=== PATIENT | female | born 1985 | race Caucasian/White ===

== ENCOUNTER 2021-01-23 00:59 | Inpatient (IN) | payer OTHER ==
[2021-01-23] VITALS (7 sets, daily range): BP systolic 108–157; BP diastolic 69–88
[~2021-01-23] VITALS: Ht 170.2 cm; Wt 104.3 kg
[~2021-01-23 00:59] MED LIST: BACTRIM DS TAB1 EAC1 PO
[2021-01-23 02:01] LABS: BASOPHILS 2.5 % (0-2); EOSINOPHILS 2.7 % (0-7); HEMATOCRIT 40.5 % (36.0-48.0); IMMATURE GRANULOCYTES 0.3 % (0-5); LYMPHOCYTE ABS# 6.52 10x3/uL (1.18-3.74); LYMPHOCYTES 45.8 % (15-50); MCH 27.4 pg (26.0-34.0); MCHC 32.1 g/dL (31.0-37.0); MCV 85.4 fL (80.0-100.0); MEAN PLATELET VOLUME 11.1 fL (7.4-10.4); MONOCYTES 5.1 % (2-11); NEUTROPHIL ABS# 6.19 10x3/uL (1.56-6.13); NEUTROPHILS 43.6 % (40-80); RBC 4.74 10x6/uL (4.00-5.40); RDW 16.3 % (11.5-14.5); WBC 14.2 10x3/uL (4.8-10.8)
[2021-01-23 02:03] LABS: PLATELET COUNT 238 10x3/uL (130-400)
[2021-01-23 02:07] LABS: HCG URINE NEGATIVE (NEGATIVE)
[2021-01-23 02:08] LABS: CALC OSMOLALITY 272 mosm/kg (275-300); CALCIUM 8.6 mg/dL (8.5-10.1); CHLORIDE - SERUM 102 mmol/L (98-107); CREATININE - SERUM 0.8 mg/dL (0.6-1.3); GLUCOSE 91 mg/dL (74-106); POTASSIUM - SERUM 3.4 mmol/L (3.5-5.1); SODIUM 138 mmol/L (136-145); UREA NITROGEN 5 mg/dL (7-18); eGFR NON AFRICAN AMERICAN 87 mL/min (90-120)
[2021-01-23 02:14] LABS: BILIRUBIN 2+ (NEGATIVE); KETONE NEGATIVE (NEGATIVE); NITRITE NEGATIVE (NEGATIVE); UROBILINOGEN NORMAL mg/dL (< 2)
[2021-01-23 02:16] LABS: BACTERIA FEW HPF (NONE SEEN); SQUAMOUS EPITHELIAL 0-5 HPF (0-4)
[2021-01-23 02:22] LABS: ALBUMIN 3.2 g/dL (3.4-5.0); ALKALINE PHOSPHATASE 233 U/L (30-120); AMYLASE - SERUM 46 U/L (25-115); BILIRUBIN - TOTAL 2.61 mg/dL (0.2-1.3); LIPASE 73 U/L (73-393)
[2021-01-23 02:23] LABS: ALT (SGPT) 1679 U/L (10-68); TROPONIN-I < 0.017 ng/mL (0.000-0.060)
--- NOTE | 2021-01-23 06:43 | NUR ---
CALLED MOTHER SINCERE WRAY PER PATIENT REQUEST [phone]
--- NOTE | 2021-01-23 11:54 | NUR ---
PATIENT HAVING MRI
--- NOTE | 2021-01-23 12:11 | NUR ---
RETURNED FROM MRI
[2021-01-23 13:37] LABS: UDS - AMPHET POSITIVE QUAL (NEGATIVE); UDS - BARB NEGATIVE QUAL (NEGATIVE); UDS - BENZO NEGATIVE QUAL (NEGATIVE); UDS - COCAINE NEGATIVE QUAL (NEGATIVE); UDS - OPIATE NEGATIVE QUAL (NEGATIVE); UDS - PCP NEGATIVE QUAL (NEGATIVE); UDS - THC POSITIVE QUAL (NEGATIVE)
--- NOTE | 2021-01-23 14:22 | NUR ---
SCDS PLACED ON PATIENT
[2021-01-23 15:16] LABS: INR 1.16 (0.85-1.17); PROTIME 13.7 SECONDS (11.6-15.0)
[2021-01-24] VITALS (8 sets, daily range): BP systolic 117–128; BP diastolic 75–88; Ht 170.2 cm; Wt 104.3 kg
[2021-01-24] MEDS ORDERED: LITHIUM CARBON300 MG PO ×2 (04:40)
[2021-01-24] MEDS ORDERED: CELEXA20 MG PO (04:41)
[2021-01-24] MEDS ORDERED: VISTARIL25 MG PO (04:41)
[2021-01-24] MEDS ORDERED: COLACE100 MG PO (04:41)
[2021-01-24] MEDS ORDERED: TOFRANIL25 MG PO (04:42)
[2021-01-24 06:54] LABS: HEMOGLOBIN 11.6 g/dL (12-16); LYMPHOCYTE ABS# 5.56 10x3/uL (1.18-3.74); MCH 27.2 pg (26.0-34.0); MCHC 31.4 g/dL (31.0-37.0); MCV 86.7 fL (80.0-100.0); MEAN PLATELET VOLUME 11.6 fL (7.4-10.4); NEUTROPHIL ABS# 3.81 10x3/uL (1.56-6.13); PLATELET COUNT 207 10x3/uL (130-400); RBC 4.27 10x6/uL (4.00-5.40)
--- NOTE | 2021-01-24 07:00 | NUR ---
REC'D RORT AND RESUMED CARE, AAO, VSS, DENIES PAIN AT THIS TIME, O2 VIA RA, ASSESSMENT COMPLETED PER FLOWSHEET, CALL IGHT IN REACH, SELF REPOSITIONS, NO NEEDS AT THIS TIME
[2021-01-24 07:07] LABS: ALBUMIN 2.6 g/dL (3.4-5.0); ALKALINE PHOSPHATASE 225 U/L (30-120); CALC OSMOLALITY 274 mosm/kg (275-300); CALCIUM 7.9 mg/dL (8.5-10.1); CARBON DIOXIDE 25.1 mmol/L (21.0-32.0); CHLORIDE - SERUM 105 mmol/L (98-107); CREATININE - SERUM 0.7 mg/dL (0.6-1.3); GLUCOSE 79 mg/dL (74-106); MAGNESIUM - SERUM 1.9 mg/dL (1.8-2.4); POTASSIUM - SERUM 3.4 mmol/L (3.5-5.1); PROTEIN - SERUM 6.1 g/dL (6.4-8.2); SODIUM 139 mmol/L (136-145); UREA NITROGEN 6 mg/dL (7-18); eGFR NON AFRICAN AMERICAN > 90 mL/min (90-120)
[2021-01-24 07:09] LABS: ALT (SGPT) 1239 U/L (10-68)
[2021-01-24 07:26] LABS: WBC 10.5 10x3/uL (4.8-10.8)
[2021-01-24 08:13] LABS: ANA REFLEX - DIRECT Negative (Negative)
--- NOTE | 2021-01-24 11:00 | NUR ---
SLEEPING WITH NO SIGNS OF DISTRESS, N ACUTE CHANGE FROM PREVIOUS ASSESSMENT
[2021-01-24 11:38] LABS: ANISOCYTOSIS OCC; EOSINOPHILS 2 % (0-7); LYMPHOCYTES 33 % (15-50); MONOCYTES 13 % (2-11); NEUTROPHILS 33 % (40-80); PLATELET ESTIMATE NORMAL
[2021-01-24 14:11] LABS: HEPATITIS C ANTIBODY <0.1 S/CO RAT (0.0-0.9)
--- NOTE | 2021-01-24 15:00 | NUR ---
RESTING WATCHING TV, NO SIGNS OF DISTRESS, NO ACUTE CHANGE FROM PREVIOUS ASSESSMENT, SELF REPOSITIONS, NO NEEDS AT THIS TIME=
--- NOTE | 2021-01-24 20:00 | NUR ---
PT SITTING UP IN BED WITHOUT DISTRESS, DAUGHTER VISITING AT BEDSIDE. DENIES NEEDS AT THSI TIME. CL IN REACH
[2021-01-25 04:00] VITALS: BP 109/65
[2021-01-25 07:06] LABS: ALBUMIN 2.5 g/dL (3.4-5.0); ALKALINE PHOSPHATASE 218 U/L (30-120); BILIRUBIN - TOTAL 1.71 mg/dL (0.2-1.3); CALCIUM 7.3 mg/dL (8.5-10.1); CARBON DIOXIDE 23.8 mmol/L (21.0-32.0); CHLORIDE - SERUM 105 mmol/L (98-107); CREATININE - SERUM 0.7 mg/dL (0.6-1.3); LIPASE 100 U/L (73-393); MAGNESIUM - SERUM 1.8 mg/dL (1.8-2.4); POTASSIUM - SERUM 3.2 mmol/L (3.5-5.1); SODIUM 138 mmol/L (136-145); eGFR NON AFRICAN AMERICAN > 90 mL/min (90-120)
[2021-01-25 07:07] LABS: ALT (SGPT) 852 U/L (10-68); CALC OSMOLALITY 273 mosm/kg (275-300); GLUCOSE 122 mg/dL (74-106); UREA NITROGEN 4 mg/dL (7-18)
[2021-01-25 07:51] LABS: BASOPHILS 0.4 % (0-2); EOSINOPHILS 2.5 % (0-7); HEMATOCRIT 34.3 % (36.0-48.0); HEMOGLOBIN 10.8 g/dL (12-16); IMMATURE GRANULOCYTES 0.4 % (0-5); LYMPHOCYTES 45.7 % (15-50); MCHC 31.5 g/dL (31.0-37.0); MCV 85.8 fL (80.0-100.0); MEAN PLATELET VOLUME 11.4 fL (7.4-10.4); MONOCYTES 5.4 % (2-11); NEUTROPHIL ABS# 3.91 10x3/uL (1.56-6.13); NEUTROPHILS 45.6 % (40-80); PLATELET COUNT 218 10x3/uL (130-400); RDW 16.9 % (11.5-14.5); WBC 8.5 10x3/uL (4.8-10.8)
--- NOTE | 2021-01-25 08:40 | NUR ---
PT SITTING UP IN BED. PT LAUGHING AND JOKING WITH STAFF. RESP EVEN AND UNLABORED. PT DOES VOICE HER STOMACH BEING "UNEASY" AFTER CONSUMING A FULL LIQUID DIET. DENIES PAIN AT THIS TIME. IV TO LEFT HAND WITH NS @ 125ML/HR INFUSING VIA PUMP. SITE WITHOUT REDNESS OR EDEMA. DENIES NAUSEA AT THIS TIME. DENIES FURTHER NEEDS AT THIS TIME. CL WITHIN REACH. ENCOURAGED TO CALL WITH NEEDS. CONTINUE POC
[2021-01-25 09:21] VITALS: BP 148/83
[2021-01-25 13:06] VITALS: BP 125/87
[2021-01-25 17:03] VITALS: BP 133/95
--- NOTE | 2021-01-25 20:15 | NUR ---
PT SUPINE IN BED C/O ABDOMINAL PAIN AND REQUESTING PAIN MEDICATION. PT GIVEN PRN PAIN AND NAUSEA MEDS WITH REPORTED RELIEF. PT BS 86, NO INSULIN REQUIRED AT THIS TIME. NO NEEDS EXPRESSED AT THIS TIME. WILL CONTINUE TO MONITOR PT.
[2021-01-25 21:02] VITALS: BP 144/94
[2021-01-26 00:25] VITALS: BP 92/52
[2021-01-26 02:26] VITALS: BP 133/83
--- NOTE | 2021-01-26 02:31 | NUR ---
AT 0225 PT C/O HEADACHE 7/ PAIN. PRN PAIN MEDICATION GIVEN. PT HAS NO OTHER COMPLAINTS OR REQUESTS AT THIS TIME. BP CHECKED PRIOR TO ADMINISTRATION 133/83.
[2021-01-26 04:38] VITALS: BP 149/101
[2021-01-26 06:06] LABS: BASOPHILS 0.2 % (0-2); EOSINOPHILS 3.4 % (0-7); HEMATOCRIT 33.9 % (36.0-48.0); HEMOGLOBIN 10.6 g/dL (12-16); IMMATURE GRANULOCYTES 0.2 % (0-5); LYMPHOCYTE ABS# 2.44 10x3/uL (1.18-3.74); LYMPHOCYTES 41.9 % (15-50); MCH 26.8 pg (26.0-34.0); MCHC 31.3 g/dL (31.0-37.0); MCV 85.6 fL (80.0-100.0); MEAN PLATELET VOLUME 11.3 fL (7.4-10.4); MONOCYTES 8.9 % (2-11); NEUTROPHIL ABS# 2.65 10x3/uL (1.56-6.13); NEUTROPHILS 45.4 % (40-80); PLATELET COUNT 198 10x3/uL (130-400); RBC 3.96 10x6/uL (4.00-5.40); RDW 16.9 % (11.5-14.5); WBC 5.8 10x3/uL (4.8-10.8)
[2021-01-26 07:11] LABS: ALBUMIN 2.4 g/dL (3.4-5.0); ALKALINE PHOSPHATASE 245 U/L (30-120); BILIRUBIN - TOTAL 1.06 mg/dL (0.2-1.3); CALCIUM 7.6 mg/dL (8.5-10.1); CARBON DIOXIDE 26.3 mmol/L (21.0-32.0); CHLORIDE - SERUM 107 mmol/L (98-107); CREATININE - SERUM 0.7 mg/dL (0.6-1.3); GLUCOSE 86 mg/dL (74-106); MAGNESIUM - SERUM 1.8 mg/dL (1.8-2.4); POTASSIUM - SERUM 3.5 mmol/L (3.5-5.1); SODIUM 139 mmol/L (136-145); eGFR NON AFRICAN AMERICAN > 90 mL/min (90-120)
[2021-01-26 07:12] LABS: ALT (SGPT) 612 U/L (10-68); CALC OSMOLALITY 272 mosm/kg (275-300); UREA NITROGEN 2 mg/dL (7-18)
--- NOTE | 2021-01-26 08:17 | NUR ---
RESTING IN BED, NO DISTRESS NOTED, NS INFUSING, CONT TO MONITOR SUGARS, AND LABS
[2021-01-26 09:06] VITALS: BP 129/80
[2021-01-26 11:57] VITALS: BP 132/86
--- NOTE | 2021-01-26 14:07 | NUR ---
PT CRYING TO D/C HOME TODAY, RADHA MCINTYRE, IV REMOVED, TIP INTACT, TRANSPORT IN ROUTE
--- NOTE | 2021-01-26 17:09 | MORECARE ---
CASE MANAGEMENT DISCHARGE SUMMARY PATIENT: BEVERLY LONG UNIT: [id number] ADM DATE: 01/23/21 AGE: 35 : 87 SEX: F ROOM/BED: D.5438 AUTHOR: RAYMON CONTRERAS PHYSICIAN: REFERRING PHYSICIAN: GREGOR PHELAN DO DATE OF SERVICE: 01/26/21 Discharge Plan Patient Name: BEVERLY LONG Facility: [facility]:[place] : 1985 Planned Disposition: Home Anticipated Discharge Date: 01/26/21 Discharge Date: 01/26/2021 Expected LOS: 3 Initial Reviewer: AMBER Initial Review Date: 01/23/2021 Generated: 01/26/21 6:08 pm Comments DCP- Discharge Planning Updated by [email or web address]: [place] on 01/26/21 4:[address] CM met with patient to complete DC plan and to evaluate needs. Patient lives with family independently. At discharge, the patient plans to return home and feels this is a safe discharge. CM discussed availability of home health, rehab services, and medical equipment. Patient declined HHS, SNF, IPR, and DME. Patient voiced no other needs at this time and is satisfied with DC plan. DC IMM delivered, explained, signed by the patient, and placed in chart. Signed form also left with the patient. CM will continue to follow and will assist as needed with dc plans/needs. DCPIA - Discharge Planning Initial Assessment Updated by [email or web address]: El Sherman on 01/26/21 5:08 pm * Is the patient Alert and Oriented? Yes * How many steps to enter\exit or inside your home? 0/0 * PCP AWA CLAYTON * Pharmacy [facility] * Preadmission Environment Home with Family * ADLs Independent * Equipment None * Other Equipment n/a * List name and contact numbers for known caregivers / representatives who currently or will assist patient after discharge: Delaney Sena ([facility]) [phone] * Verbal permission to speak to the caregivers and representatives has been obtained from the patient. Yes * Community resources currently utilized None * Please name any agencies selected above. n/a * Additional services required to return to the preadmission environment? No * Can the patient safely return to the preadmission environment? Yes * Has this patient been hospitalized within the prior 30 days at any hospital? No Coverage Notice Reviewer: [id number] Gregg Sherman Notice Issued Date-Time: 01/26/2021 12:15 Notice Type: IM Discharge Notice Notice Delivered To: Patient Relationship to Patient: Self Reliability Technologist Name: Delivery Method: HAND - Hand Delivered Tabatha Days: Prior Verbal Notification: Recipient Understood Notice: Yes Recipient Signature: Yes Med Rec Note Co-signed by Attending: Coverage Notice Comment: DC IMM delivered, explained, signed by the patient, and placed in chart. Patient Name: BEVERLY LONG Page 11515 at 1709 All edits/amendments must be made on the electronic document DICTATION DATE: 01/26/211707 FLAG DECORATOR: JAN 01/26/211707 RPT#: [id number] DC DATE:01/26/21 STATUS: DIS IN [facility] [address] [place] [address] END OF REPORT
[2021-01-26 18:08] LABS: MITOCHONDRIAL ANTIBODY <20.0 Units (0.0-20.0)
--- NOTE | 2021-01-28 07:38 | MORECARE ---
CASE MANAGEMENT DISCHARGE SUMMARY PATIENT: BEVERLY LONG UNIT: [id number] ADM DATE: 01/23/21 AGE: 35 : 87 SEX: F ROOM/BED: D.2271 AUTHOR: RAYMON CONTRERAS PHYSICIAN: REFERRING PHYSICIAN: GREGOR PHELAN DO DATE OF SERVICE: 01/28/21 Discharge Plan Patient Name: BEVERLY LONG Facility: [facility]:[place] : 1985 Planned Disposition: Home Anticipated Discharge Date: 01/26/21 Discharge Date: 01/26/2021 Expected LOS: 3 Initial Reviewer: AMBER Initial Review Date: 01/23/2021 Generated: 01/28/21 8:38 am Comments DCP- Discharge Planning Updated by [email or web address]: [place] Sherman on 01/26/21 4:[address] CM met with patient to complete DC plan and to evaluate needs. Patient lives with family independently. At discharge, the patient plans to return home and feels this is a safe discharge. CM discussed availability of home health, rehab services, and medical equipment. Patient declined HHS, SNF, IPR, and DME. Patient voiced no other needs at this time and is satisfied with DC plan. DC IMM delivered, explained, signed by the patient, and placed in chart. Signed form also left with the patient. CM will continue to follow and will assist as needed with dc plans/needs. DCPIA - Discharge Planning Initial Assessment Updated by [email or web address]: El Sherman on 01/26/21 5:08 pm * Is the patient Alert and Oriented? Yes * How many steps to enter\exit or inside your home? 0/0 * PCP AWA CLAYTON * Pharmacy [facility] * Preadmission Environment Home with Family * ADLs Independent * Equipment None * Other Equipment n/a * List name and contact numbers for known caregivers / representatives who currently or will assist patient after discharge: Delaney Sena ([facility]) [phone] * Verbal permission to speak to the caregivers and representatives has been obtained from the patient. Yes * Community resources currently utilized None * Please name any agencies selected above. n/a * Additional services required to return to the preadmission environment? No * Can the patient safely return to the preadmission environment? Yes * Has this patient been hospitalized within the prior 30 days at any hospital? 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 Last DP export: 01/26/21 4:09 p Patient Name: BEVERLY LONG Page [phone] at 0738 All edits/amendments must be made on the electronic document DICTATION DATE: 01/28/21737 RN REFERRAL: JAN 01/28/2138 RPT#: [id number] DC DATE:01/26/21 STATUS: DIS IN [facility] [address] [place] [address] END OF REPORT
== END 2021-01-26 14:14 | disposition home or self-care (01) | DRG 439 ==
LOC: D.ER 00:59 → D.MS 06:08 → D.EDHOLD 06:08 → D.MS 01-24 00:09
PROVIDERS: Family Medicine; Internal Medicine Gastroenterology; ADMIT Family Medicine; ATTEND Family Medicine
DX: K85.90 Acute pancreatitis without necrosis or infection, unspecified (principal); B15.9 Hepatitis A without hepatic coma; E87.6 Hypokalemia; F15.10 Other stimulant abuse, uncomplicated; R11.0 Nausea; K59.00 Constipation, unspecified; R74.8 Abnormal levels of other serum enzymes